=== PATIENT | female | born 1990 | race Caucasian/White ===

== ENCOUNTER 2024-12-22 15:26 | Inpatient (IN) | payer BC ==
[~2024-12-22] VITALS: Ht 165.1 cm; Wt 76.7 kg
[2024-12-22 15:33] VITALS: O2SAT 99
[2024-12-22] MEDS ORDERED: LORAZEPAM 1MG TABLET PO PRN ×2 (16:15)
[2024-12-22] MEDS ORDERED: PHENOBARBITAL 60MG TABLET PO PRN ×2 (16:15→20:30)
[2024-12-22] MEDS ORDERED: CHLORDIAZEPOXIDE 25MG CAPSULE PO PRN ×4 (16:15→20:30)
[2024-12-22] MEDS ORDERED: PHENOBARBITAL 30 MG TABLET PO PRN ×3 (16:15→20:30)
[2024-12-22] MEDS: FOLIC ACID 1MG TABLET PO SCH (16:52)
[2024-12-22] MEDS: MULTIVITAMINS,THER W-MINERALS TABLET PO SCH (16:52)
[2024-12-22 16:53] LABS: ADD RBC MORPHOLOGY YES; BASOPHILS % 0.8 % (0.0-2.0); EOSINOPHILS % 0.0 % (0.0-5.0); HEMATOCRIT. 38.5 % (36.0-48.0); HEMOGLOBIN. 12.8 g/dL (12.0-16.0); LYMPHOCYTES % 8.8 % (20.0-50.0); MEAN PLATELET VOLUME 8.8 fl (7.4-10.4); MONOCYTES % 7.1 % (2.0-8.0); NEUTROPHILS % 83.3 % (40.0-76.0); PLATELET 284 x1000/uL (130-400); RED BLOOD CELL COUNT 4.18 mill/uL (4.2-5.4); RED CELL DISTRIBUTION WIDTH 24.4 % (11.6-14.6)
[2024-12-22] MEDS: SODIUM CHLORIDE 0.9% 1,000 ML IV ONE (16:53)
[2024-12-22] MEDS: LORAZEPAM 1MG TABLET PO PRN ×2 (16:53→20:59)
[2024-12-22] MEDS: ONDANSETRON HCL 4MG/2ML INJ IV ONE (16:57)
[2024-12-22] MEDS: MORPHINE SULFATE 4 MG/ML INJ (FOR IV/IM USE) IV ONE (17:00)
[2024-12-22 17:03] LABS: HCG SCREEN NEGATIVE
[2024-12-22 17:05] LABS: CREATININE 0.9 mg/dL (0.6-1.0); ETHANOL BLOOD 46 mg/dL (<10); UREA NITROGEN BLOOD 6 mg/dL (9-23)
[2024-12-22 17:07] LABS: ASPARTATE AMINOTRANSFERASE 336 IU/L (<34); BILIRUBIN DIRECT 0.5 mg/dL (<=3.0); BILIRUBIN TOTAL 1.4 mg/dL (0.1-1.0); PROTEIN TOTAL 8.3 g/dL (6.0-8.3)
[2024-12-22 17:16] LABS: PLATELET ESTIMATE NORMAL
[2024-12-22] MEDS: MAGNESIUM 2 G PREMIX 50 ML IV ONE (17:59)
[2024-12-22 20:00] VITALS: BP 150/109; PULSE 127; RESP 20; TEMP 36.8; TEMP 36.8072; O2SAT 98
[2024-12-22] MEDS ORDERED: GUAIFENESIN 200MG/10ML SUGAR FREE UDC PO PRN (20:30)
[2024-12-22] MEDS ORDERED: CLONIDINE 0.1MG TABLET PO PRN (20:30)
[2024-12-22] MEDS ORDERED: ONDANSETRON HCL 4MG/2ML INJ IV PRN (20:30)
[2024-12-22] MEDS ORDERED: DOCUSATE SODIUM 100MG CAPSULE PO PRN (20:30)
[2024-12-22] MEDS ORDERED: IPRATROPIUM/ALBUTEROL 0.5-3(2.5)MG/3ML NEB HHN PRN (20:30)
[2024-12-22] MEDS ORDERED: DEXTROSE 50% WATER 50ML SYRINGE IV PRN (20:30)
[2024-12-22] MEDS ORDERED: MAGNESIUM/ALUMINUM HYDROXIDE/SIMETHICONE 30ML UDC PO PRN (20:30)
[2024-12-22] MEDS ORDERED: ACETAMINOPHEN 325MG TABLET PO PRN (20:45)
[2024-12-22] MEDS: PANTOPRAZOLE SODIUM 40 MG/VIAL IV SCH (20:58)
[2024-12-22] MEDS: THIAMINE HCL 100 MG/1 ML 2ML VIAL IM SCH (20:59)
[2024-12-22] MEDS: BLOOD SUGAR DIAGNOSTIC STRIP TEST SCH (20:59)
[2024-12-22] MEDS ORDERED: FOLIC ACID 1MG TABLET PO SCH (21:00)
[2024-12-22] MEDS ORDERED: MULTIVITAMINS,THER W-MINERALS TABLET PO SCH (21:00)
[2024-12-22] MEDS: INSULIN LISPRO 100 UNITS/ML SUBCUT SCH (21:00)
[2024-12-22] MEDS: CHLORDIAZEPOXIDE 25MG CAPSULE PO PRN (21:54)
[2024-12-22] MEDS: LACTATED RINGERS 1,000 ML IV SCH (22:56)
[2024-12-22 23:00] VITALS: BP 137/95; PULSE 117; RESP 18; O2SAT 96
[2024-12-22] MEDS: ONDANSETRON HCL 4MG/2ML INJ IV SCH (23:57)
[2024-12-22] MEDS: MAGNESIUM GLUCONATE 500MG TABLET PO SCH (23:57)
[2024-12-23] VITALS: BP 127/96; PULSE 118; RESP 20; TEMP 37.1; O2SAT 96
[2024-12-23 01:39] LABS: CLARITY URINE CLOUDY (CLEAR); COLOR URINE ORANGE (YELLOW); GLUCOSE URINE NEGATIVE (NEGATIVE); KETONES URINE TRACE (NEGATIVE); LEUKOCYTE ESTERASE URINE TRACE (NEGATIVE); NITRITE URINE POSITIVE (NEGATIVE); OCCULT BLOOD URINE 1+ (NEGATIVE); PH URINE 5.5 (4.5-8.0); PROTEIN URINE 1+ (NEGATIVE); SPECIFIC GRAVITY URINE 1.025 (1.005-1.030); UROBILINOGEN URINE 1.0 E.U./dL (0.2-1.0)
[2024-12-23 01:58] LABS: *AMPHETAMINES SCREEN URINE NEGATIVE (NEGATIVE); *BENZODIAZEPINES SCREEN URINE NEGATIVE (NEGATIVE)
[2024-12-23 01:59] LABS: *BARBITURATES SCREEN URINE NEGATIVE (NEGATIVE); *COCAINE SCREEN URINE NEGATIVE (NEGATIVE); CANNABINOID URINE SCREEN NEGATIVE (NEGATIVE); ECSTASY MDMA SCREEN URINE NEGATIVE (NEGATIVE); METHADONE URINE SCREEN NEGATIVE (NEGATIVE); OPIATES URINE SCREEN PRESUMPTIVE POSITIVE (NEGATIVE); PHENCYCLIDINE URINE SCREEN NEGATIVE (NEGATIVE)
[2024-12-23] MEDS: PHENOBARBITAL 30 MG TABLET PO PRN (02:30)
[2024-12-23] MEDS: ACETAMINOPHEN 325MG TABLET PO PRN (02:30)
[2024-12-23 02:42] LABS: BACTERIA URINE 2+; RBC URINE 0-2 /hpf (0-2); SQUAMOUS EPITHELIAL CELL URINE 2+ /lpf (RARE/1+)
[2024-12-23] MEDS ORDERED: POTA-354 PO (03:44)
[2024-12-23] MEDS ORDERED: METO-411 PO (03:44)
[2024-12-23] MEDS ORDERED: METO5TAB2 PO (03:44)
[2024-12-23 04:00] VITALS: BP 153/99; PULSE 124; RESP 20; TEMP 36.5; O2SAT 94
[2024-12-23] MEDS: MAGNESIUM 2 G PREMIX 50 ML IV NR (04:31)
[2024-12-23 08:00] VITALS: BP 133/90; PULSE 89; RESP 20; TEMP 36; O2SAT 89
[2024-12-23] MEDS: METOPROLOL TARTRATE 25MG TABLET PO SCH (08:28)
[2024-12-23] MEDS: MULTIVITAMINS,THER W-MINERALS TABLET PO SCH (08:28)
[2024-12-23] MEDS: FOLIC ACID 1MG TABLET PO SCH (08:28)
[2024-12-23] MEDS: ENOXAPARIN 40MG/0.4ML SYR SUBCUT SCH (08:28)
[2024-12-23 08:49] LABS: BASOPHILS % 0.8 % (0.0-2.0); EOSINOPHILS % 0.5 % (0.0-5.0); HEMATOCRIT. 33.2 % (36.0-48.0); HEMOGLOBIN. 10.9 g/dL (12.0-16.0); LYMPHOCYTES % 34.5 % (20.0-50.0); MEAN PLATELET VOLUME 9.0 fl (7.4-10.4); MONOCYTES % 10.2 % (2.0-8.0); NEUTROPHILS % 54.0 % (40.0-76.0); PLATELET 169 x1000/uL (130-400); RED BLOOD CELL COUNT 3.58 mill/uL (4.2-5.4); RED CELL DISTRIBUTION WIDTH 24.7 % (11.6-14.6)
[2024-12-23 09:16] LABS: CREATININE 0.7 mg/dL (0.6-1.0)
[2024-12-23 09:17] LABS: ASPARTATE AMINOTRANSFERASE 118 IU/L (<34); PROTEIN TOTAL 6.6 g/dL (6.0-8.3)
[2024-12-23 09:20] LABS: TRIGLYCERIDE 123 mg/dL (0-150); UREA NITROGEN BLOOD 6 mg/dL (9-23)
[2024-12-23 09:21] LABS: BILIRUBIN DIRECT 0.7 mg/dL (<=3.0); LDL CHOLESTEROL 95 mg/dL (5-100)
[2024-12-23 09:22] LABS: PHOSPHORUS 3.5 mg/dL (2.5-4.9)
[2024-12-23 09:23] LABS: BILIRUBIN TOTAL 1.9 mg/dL (0.1-1.0)
[2024-12-23] MEDS: CEFTRIAXONE 2GM/50ML 50 ML IV SCH (11:47)
[2024-12-23 12:00] VITALS: BP 134/89; PULSE 89; RESP 20; TEMP 36.1; O2SAT 96
[2024-12-23 16:00] VITALS: BP 132/84; PULSE 108; RESP 20; TEMP 36.1; O2SAT 98
[2024-12-23] MEDS ORDERED: LORAZEPAM 1MG TABLET PO PRN (16:15)
[2024-12-23] MEDS: LORAZEPAM 1MG TABLET PO PRN ×2 (16:15→20:01)
[2024-12-23] MEDS: KETOROLAC 15MG/ML VIAL IV PRN (17:57)
[2024-12-23] MEDS: CHLORDIAZEPOXIDE 25MG CAPSULE PO PRN (18:02)
[2024-12-23 20:00] VITALS: BP 137/100; PULSE 114; RESP 20; TEMP 36.9; O2SAT 100
[2024-12-23] MEDS: KCL 20MEQ/100ML PREMIX 100 ML IV SCH (20:57)
[2024-12-24] VITALS: BP_SYST 123; BP_SYST 139; BP_DIAS 66; BP_DIAS 89; PULSE 106; RESP 20; TEMP 36.4; O2SAT 100
[2024-12-24 04:00] VITALS: BP 110/75; PULSE 95; RESP 20; TEMP 36.5; O2SAT 100
[2024-12-24] MEDS: POTASSIUM CHLORIDE 20MEQ TABLET SR PO SCH (05:07)
[2024-12-24 08:05] VITALS: BP 113/78; PULSE 103; RESP 20; TEMP 36.6; O2SAT 99
[2024-12-24 11:56] VITALS: BP_SYST 113; BP_SYST 122; BP_DIAS 78; BP_DIAS 85; PULSE 103; PULSE 91; RESP 20; TEMP 36.6; O2SAT 96; O2SAT 99
[2024-12-24 14:46] LABS: CREATININE 0.8 mg/dL (0.6-1.0); UREA NITROGEN BLOOD 8 mg/dL (9-23)
[2024-12-24] MEDS: POTASSIUM CHLORIDE 20MEQ TABLET SR PO NR (15:35)
[2024-12-24 15:52] VITALS: BP_SYST 105; PULSE 101; RESP 18; TEMP 36.6; O2SAT 97
[2024-12-24] MEDS ORDERED: SULF1TAB48 MT (15:59)
[2024-12-24 16:32] VITALS: BP 122/85; PULSE 101; RESP 18; TEMP 97.9
[2024-12-25] MEDS ORDERED: THIAMINE HCL 100MG TABLET PO SCH ×2 (09:00)
== END 2024-12-24 17:35 | disposition home or self-care (01) | DRG 690 ==
LOC: ER 15:26 → 7WST 17:25 → EDBEDREQTM 17:29 → EDBEDREQ 17:29
PROVIDERS: ADMIT Internal Medicine; ATTEND Internal Medicine
DX: N39.0 Urinary tract infection, site not specified (principal); F10.239 Alcohol dependence with withdrawal, unspecified; G61.0 Guillain-Barre syndrome; E83.42 Hypomagnesemia; I10 Essential (primary) hypertension; R74.01 Elevation of levels of liver transaminase levels; G89.29 Other chronic pain; N20.0 Calculus of kidney; R73.9 Hyperglycemia, unspecified; M41.9 Scoliosis, unspecified; K76.0 Fatty (change of) liver, not elsewhere classified; F41.9 Anxiety disorder, unspecified; Z79.899 Other long term (current) drug therapy; Z98.51 Tubal ligation status
CPT/HCPCS: 36415; 74176; 80048; 80061; 80076; 80305; 80320; 81003; 82270; 82550; 82962; 83036; 83735; 84100; 84443; 84703; 85025; 93005; 96361; 96374; 96375; 99285; A4606; J0696; J1650; J1885; J2270; J2405; J2470; J3411; J3475; J3480; J7030; J7120; G0480